=== PATIENT | female | born 1960 | race Caucasian/White ===

== ENCOUNTER 2017-12-06 10:47 | Day surgery (SDC) | payer MEDICAID ==
[2017-12-05 14:24] LABS: BASOPHILS # (AUTO) 0.1 X10'3 (0-0.2); BASOPHILS % (AUTO) 0.6 % (0-1); EOSINOPHILS # (AUTO) 0.2 X10'3 (0-0.9); LYMPHOCYTES # (AUTO) 4.3 X10'3 (1.1-4.8); LYMPHOCYTES % (AUTO) 45.3 % (21-51); MEAN CORPUSCULAR HEMOGLOBIN 32.5 PG (27.0-31.0); MEAN CORPUSCULAR HGB CONC 34.8 % (33.0-36.5); MEAN CORPUSCULAR VOLUME 93.4 FL (78-98); MEAN PLATELET VOLUME 8.2 FL (7.4-10.4); MONOCYTES # (AUTO) 0.7 X10'3 (0-0.9); MONOCYTES % (AUTO) 7.9 % (2-12); NEUTROPHILS # (AUTO) 4.2 X10'3 (1.8-7.7); NEUTROPHILS % (AUTO) 44.2 % (42-75); PRE OP HEMATOCRIT 43.8 % (35.0-45.0); PRE OP HEMOGLOBIN 15.3 g/dL (12.0-16.0); PRE OP PLATELET COUNT 233 X10'3 (140-440); RED BLOOD COUNT 4.69 X10'6 (4.20-5.60); RED CELL DISTRIBUTION WIDTH 13.8 % (11.5-14.5)
[2017-12-05 14:39] LABS: ALBUMIN 3.8 G/DL (3.4-5.0); ALBUMIN/GLOBULIN RATIO 1.1 (1.1-1.5); ALKALINE PHOSPHATASE 70 IU/L (46-116); BLOOD UREA NITROGEN 11 MG/DL (7-18); BUN/CREATININE RATIO 13.8 (6.6-38.0); CALCIUM 9.2 MG/DL (8.5-10.1); CHLORIDE 105 MMOL/L (99-107); PRE OP ALT 52 U/L (30-65); PRE OP ANION GAP 12 (8-16); PRE OP AST 41 U/L (10-37); PRE OP BILIRUB, TOTAL 0.8 MG/DL (0.0-1.0); PRE OP GLUCOSE 88 MG/DL (70-104); PRE OP SODIUM 142 MMOL/L (135-145); TOTAL CARBON DIOXIDE 24.9 MMOL/L (24-32); TOTAL PROTEIN 7.3 G/DL (6.4-8.2); eGFR 74 ML/MIN
[2017-12-06] VITALS (7 sets, daily range): BP systolic 113–147; BP diastolic 58–79
[~2017-12-06] VITALS: Ht 162.6 cm; Wt 128.0 kg
[~2017-12-06 10:47] MED LIST: CANNABIS INH; GABA-532 PO; LEVO25TA2 PO; albuterol 2.5 MG/3 ML nebule NEB ONE; famotidine 20mg tablet PO ONE; ringers solution, lacted 1,000 ML IV SCH
[2017-12-06] MEDS ORDERED: diazepam 5mg tablet PO PRN (12:05)
[2017-12-06] MEDS ORDERED: BUPIVAcaine/PF 2.5 mg/ml (0.25%) 30ml vial ONE (13:21)
[2017-12-06] MEDS ORDERED: LIDOcaine 1% 30ml preserv. free vial ONE (13:38)
[2017-12-06] MEDS ORDERED: ringers solution, lacted 1,000 ML IV SCH (13:41)
[2017-12-06] MEDS ORDERED: meperidine/PF 50mg/ml syringe IV PRN ×3 (13:45)
[2017-12-06] MEDS ORDERED: morphine 4 MG/ML inj SYRINge IV PRN ×2 (13:45)
[2017-12-06] MEDS ORDERED: ondansetron/PF 4mg/2ml inj IV PRN (13:45)
[2017-12-06] MEDS ORDERED: proCHLORperazine 10 MG/2 ml inj IV PRN (13:45)
[2017-12-06] MEDS ORDERED: fentaNYL/PF 50MCG/1 ML 2ML syringe ONE (13:46)
[2017-12-06] MEDS ORDERED: MIDAZolam 5mg/5ml vial ONE (13:46)
[2017-12-06] MEDS ORDERED: sodium bicarbonate 1 MEQ/1 ml inj ONE (14:08)
[2017-12-06] MEDS ORDERED: propofol inj 20 ML IV ONE (14:08)
[2017-12-06] MEDS ORDERED: 0.9 % SODIUM CHLORIDE 10 ML VIAL ONE ×2 (14:08)
[2017-12-06] MEDS ORDERED: ceFAZolin 2gm in dextrose, iso 100 ML IV ONE (16:00)
== END 2017-12-06 14:55 | disposition home or self-care (01) ==
LOC: PAS 10:47
PROVIDERS: ATTEND Orthopaedic Surgery Hand Surgery
DX: G56.01 Carpal tunnel syndrome, right upper limb (principal); F10.21 Alcohol dependence, in remission; I25.2 Old myocardial infarction; F41.8 Other specified anxiety disorders; E66.9 Obesity, unspecified; M47.812 Spondylosis without myelopathy or radiculopathy, cervical region; M79.7 Fibromyalgia; E03.9 Hypothyroidism, unspecified; J45.998 Other asthma; F32.9 Major depressive disorder, single episode, unspecified; Z88.0 Allergy status to penicillin; Z88.1 Allergy status to other antibiotic agents; Z68.42 Body mass index [BMI] 45.0-49.9, adult; Z88.6 Allergy status to analgesic agent; Z90.49 Acquired absence of other specified parts of digestive tract; Z90.89 Acquired absence of other organs; Z98.51 Tubal ligation status; Z79.01 Long term (current) use of anticoagulants; Z87.891 Personal history of nicotine dependence; Z98.890 Other specified postprocedural states; Z79.899 Other long term (current) drug therapy
CPT/HCPCS: 29848; 36415; 71046; 80053; 85025; 85610; 85730; 93005; 94640; 94760; A6449; J0690; J2250; J2704; J3010; J3490; J7120; A7000